=== PATIENT | female | born 1945 | race Caucasian/White ===

== ENCOUNTER → 2016-12-26 | Outpatient (CLI) | payer MEDICARE, BC ==
[~2016-12-26] MED LIST: BENICAR HCT 12.1 TAB PO; CEPHALEXIN500 M1 PO; EFFEXOR-XR150 MG PO; NORCO 325 MG-7.1 TAB PO; PREMPRO 0.3 MG-1 TAB PO; SUDAFED30 MG PO; SYNTHROID 0.0.025 MG PO
[2016-12-26 17:22] LABS: HIV 1/2 Antibodies Non-Reactive; HIV-1p24 Antigen Non-Reactive
== END ==
LOC: COL.LAB 15:58
PROVIDERS: Orthopaedic Surgery
DX: Z01.812 Encounter for preprocedural laboratory examination (principal); M17.11 Unilateral primary osteoarthritis, right knee

== ENCOUNTER 2017-05-13 17:55 | Emergency (ER) | payer MEDICARE, BC ==
[~2017-05-13] VITALS: Ht 162.6 cm; Wt 90.9 kg
[2017-05-13 17:58] VITALS: TEMP 98.8
[2017-05-13] MEDS ORDERED: ADVIL200 MG PO (19:06)
[2017-05-13] MEDS ORDERED: NORCO 325 MG-51 TAB PO (19:38)
[2017-05-13 20:17] VITALS: BP 152/95; PULSE 80
== END 2017-05-13 20:21 | disposition home or self-care (01) ==
LOC: COL.ER 17:55
DX: S86.811A Strain of other muscle(s) and tendon(s) at lower leg level, right leg, initial encounter (principal); S00.81XA Abrasion of other part of head, initial encounter; I10 Essential (primary) hypertension; Z96.651 Presence of right artificial knee joint; W01.0XXA Fall on same level from slipping, tripping and stumbling without subsequent striking against object, initial encounter; Y92.488 Other paved roadways as the place of occurrence of the external cause

== ENCOUNTER → 2017-09-04 | Outpatient (CLI) | payer MEDICARE, BC ==
[~2017-09-04] MED LIST changes: +ADVIL200 MG PO; +NORCO 325 MG-51 TAB PO
[2017-09-04 12:15] LABS: HIV 1/2 Antibodies Non-Reactive; HIV-1p24 Antigen Non-Reactive
== END ==
LOC: COL.LAB 11:11
PROVIDERS: Orthopaedic Surgery
DX: Z01.812 Encounter for preprocedural laboratory examination (principal); M17.12 Unilateral primary osteoarthritis, left knee

== ENCOUNTER → 2018-12-08 | Outpatient (CLI) | payer MEDICARE, BC | LOC: MC.RAD 07:30 | DX: Z12.31 Encounter for screening mammogram for malignant neoplasm of breast (principal) ==

== ENCOUNTER → 2019-12-10 | Outpatient (CLI) | payer MEDICARE, BC | LOC: MC.RAD 10:15 | DX: Z12.31 Encounter for screening mammogram for malignant neoplasm of breast (principal); N64.89 Other specified disorders of breast ==

== ENCOUNTER → 2019-12-17 | Outpatient (CLI) | payer MEDICARE, BC | LOC: MC.RAD 09:53 | DX: N64.89 Other specified disorders of breast (principal) ==

== ENCOUNTER 2020-04-19 02:10 | Emergency (ER) | payer MEDICARE, BC ==
[~2020-04-19] VITALS: Ht 162.7 cm; Wt 104.5 kg
--- NOTE | 2020-04-19 10:30 | NUR ---
Pt [place] [facility] [place] [facility] [place] from [place]. Pt awake and alert. Denies pain or nausea. Pt transfers self to bed. Assesment complete and RXM reviewed. Call light within reach. INT to LT AC without redness or drainage. Side rails up x2.
[2020-04-19 11:00] VITALS: BP 131/67; PULSE 77; TEMP 97.8
[2020-04-19 15:10] VITALS: BP 118/88; PULSE 79; TEMP 97.7
--- NOTE | 2020-04-19 15:10 | NUR ---
Pt to [facility] [place] [facility] via cart from PACU. Pt drowsy, but awake. Pt denies pain or nausea. O2 on at 2 liters via nasal canula. Encouraged pt to deep breath and cough. Education on splinting abdomen provided. in room. Apple sauce and water given per pt request. Bandaids x2 and Gauze dressing x1 to abdomen are all clean, dry and intact. Side rails up x2. Will continue to monitor. Call light within reach.
[2020-04-19 15:25] VITALS: BP 112/85; PULSE 78
--- NOTE | 2020-04-19 15:25 | NUR ---
Pt continues to rest. Visiting with her . Denies pain or nausea. Tolerating po food and fluids without difficulties. O2 decreased to 1 liter via nasal canula. Call light within reach.
[2020-04-19 15:40] VITALS: BP 129/69; PULSE 74
--- NOTE | 2020-04-19 15:40 | NUR ---
Pt resting. Denies needs. Call light within reach.
[2020-04-19 15:55] VITALS: BP 118/72; PULSE 74
--- NOTE | 2020-04-19 15:55 | NUR ---
O2 discontinued. Pt encouraged to deep breath and cough. O2 stats sitting 88-90% on room air. Will provide IS and instructions on use to help pt with deep breathing.
[2020-04-19 16:10] VITALS: BP 110/53; PULSE 73
--- NOTE | 2020-04-19 16:10 | NUR ---
IS given and instructed on use. Pt shows correct return demonstration. O2 sat is 91% on room air before IS use. Pt up to restroom with stand by assist. Pt incontent of urine, and also voided large amounts without difficulties. Pt back to room.
--- NOTE | 2020-04-19 16:15 | NUR ---
Discharge instructions reviewed. Pt voices understanding. IV site discontinued with all parts intact. Pt up to dress with assistance from . Call light within reach.
--- NOTE | 2020-04-19 16:40 | NUR ---
Pt escorted to private car via wheel chair. Pt accompanied home by her .
[2020-04-20 10:55] LABS: COLLECTION METHOD CLEAN CATCH
[2020-04-20 13:06] LABS: RED BLOOD COUNT 4.65 M/mm3 (4.10-5.30)
[2020-04-20 13:07] LABS: HEMATOCRIT 40.3 % (37.0-47.0); HEMOGLOBIN 13.3 g/dl (12.5-16.0); MEAN CELL VOLUME 87 fl (80.0-100.0); MEAN CORPUSCULAR HEMOGLOBIN 29 pg (27.0-31.0); MEAN CORPUSCULAR HGB CONC 33 g/dl (33.0-37.0); PLATELET COUNT 329 K/mm3 (130-400); REDCELL DISTRIBUTION WIDTH-CV 14.1 % (11.5-14.5)
[2020-04-20 13:08] LABS: BASO # 0.1 (0.0-0.2); BASO % 0.4 % (0.0-2.0); EOS # 0.3 (0.0-0.7); EOS % 1.8 % (0-4.0); GRAN # 14.8 (1.4-6.5); GRAN % 82.1 % (42.2-75.2); LYMPH # 1.8 (1.2-3.4); LYMPH % 10.2 % (20.0-51.0); MEAN PLATELET VOLUME 9.8 fl (7.4-10.4); MONO # 0.9 (0.1-0.6); MONO % 4.9 % (1.7-9.3)
[2020-04-20 13:09] LABS: ANION GAP 8 mmol/L (7-16); BLOOD UREA NITROGEN 32 mg/dL (7-17); CARBON DIOXIDE 28 mmol/L (22-30); CHLORIDE 101 mmol/L (98-107); GLUCOSE 168 mg/dL (74-106); POTASSIUM 3.8 mmol/L (3.4-5.0); SODIUM 137 mmol/L (137-145)
[2020-04-20 13:10] LABS: ALANINE AMINOTRANSFERASE 21 U/L (4-34); ALBUMIN 4.1 gm/dL (3.5-5.0); ALKALINE PHOSPHATASE 76 U/L (50-136); AST,SGOT 32 U/L (15-37); BILIRUBIN,TOTAL 0.6 mg/dL (0.0-1.0); CALCIUM 9.4 mg/dL (8.4-10.2); LIPASE 39 U/L (23-300); TOTAL PROTEIN 7.4 gm/dL (6.4-8.2); TROPONIN-I < 0.012 ng/mL (0.000-0.035)
[2020-04-20 13:11] LABS: C-REACTIVE PROTEIN 5.6 mg/dL (0.0-0.9)
[2020-04-20 13:12] LABS: PH 5 (5-8); URINE APPEARANCE Cloudy; URINE COLOR Amber
[2020-04-20 13:13] LABS: URINE BILIRUBIN Negative (NEGATIVE); URINE BLOOD Negative (NEGATIVE); URINE GLUCOSE Negative (NEGATIVE); URINE KETONE Negative (NEGATIVE); URINE NITRATE Negative (NEGATIVE); URINE PROTEIN(semi-quant) 2+ (NEGATIVE); URINE UROBILINOGEN Negative (NEGATIVE)
[2020-04-20 13:14] LABS: MUCOUS Present /lpf; SQUAMOUS EPITHELIAL 0-2 /hpf; URINE BACTERIA None Seen /hpf; URINE CALCIUM OXALATE CRYSTAL Present /hpf; URINE LEUKOCYTE ESTERASE Negative (NEGATIVE)
[2020-04-21 08:40] VITALS: BP 120/80; PULSE 79; TEMP 98.5
== END 2020-04-19 10:35 | disposition other institution (70) ==
LOC: COL.ER 02:10
PROVIDERS: Emergency Medicine
DX: K81.0 Acute cholecystitis (principal); I10 Essential (primary) hypertension; E03.9 Hypothyroidism, unspecified; F32.9 Major depressive disorder, single episode, unspecified; Z88.2 Allergy status to sulfonamides; Z79.890 Hormone replacement therapy
CPT/HCPCS: J0330; J0690; J1100; J1885; J2250; J2270; J2405; J2543; J2704; J2710; J3010; J7030; J7120; Q9967

== ENCOUNTER → 2021-03-07 | Outpatient (CLI) | payer MEDICARE, BC | LOC: MC.RAD 10:54 | DX: Z12.31 Encounter for screening mammogram for malignant neoplasm of breast (principal) ==

== ENCOUNTER → 2021-05-31 | Outpatient (CLI) | payer MEDICARE, BC | LOC: COL.RAD 07:42 | DX: G45.9 Transient cerebral ischemic attack, unspecified (principal) | CPT/HCPCS: A9575 ==

== ENCOUNTER 2022-04-11 16:15 | Emergency (ER) | payer OTHER, MEDICARE, BC ==
[~2022-04-11] VITALS: Ht 162.6 cm; Wt 93.6 kg
[2022-04-11 16:21] VITALS: TEMP 98.4
[2022-04-11 16:58] LABS: BASO # 0.1 K/mm3 (0.0-0.2); BASO % 0.5 % (0.0-2.0); EOS # 0.3 K/mm3 (0.0-0.7); EOS % 3.1 % (0.0-4.0); GRAN # 7.5 K/mm3 (1.4-6.5); GRAN % 72.2 % (42.2-75.2); HEMOGLOBIN 13.7 g/dl (12.5-16.0); LYMPH # 1.9 K/mm3 (1.2-3.4); LYMPH % 18.3 % (20.0-51.0); MEAN CELL VOLUME 85 fl (80.0-100.0); MEAN CORPUSCULAR HEMOGLOBIN 28 pg (27-31); MEAN CORPUSCULAR HGB CONC 33 g/dl (33.0-37.0); MEAN PLATELET VOLUME 9.9 fl (7.4-10.4); MONO # 0.6 K/mm3 (0.1-0.6); MONO % 5.5 % (1.7-9.3); PLATELET COUNT 302 K/mm3 (130-400); RED BLOOD COUNT 4.94 M/mm3 (4.10-5.30); REDCELL DISTRIBUTION WIDTH-CV 14.5 % (11.5-14.5)
[2022-04-11 17:13] LABS: ALBUMIN 3.7 gm/dL (3.4-4.8); BILIRUBIN,TOTAL 0.4 mg/dL (0.2-1.2); CALCIUM 9.3 mg/dL (8.4-10.2); CREATININE, serum 0.82 mg/dL (0.57-1.11); POTASSIUM 3.6 mmol/L (3.5-4.5); TOTAL PROTEIN 7.1 gm/dL (6.2-8.1)
[2022-04-11] MEDS ORDERED: NORCO 325 MG-51 TAB PO (17:41)
[2022-04-11 18:19] VITALS: BP 199/107; PULSE 79
== END 2022-04-11 18:23 | disposition home or self-care (01) ==
LOC: COL.ER 16:15
PROVIDERS: Personal Emergency Response Attendant
DX: S80.01XA Contusion of right knee, initial encounter (principal); S09.90XA Unspecified injury of head, initial encounter; R41.2 Retrograde amnesia; Z28.310 Unvaccinated for COVID-19; V49.9XXA Car occupant (driver) (passenger) injured in unspecified traffic accident, initial encounter; Y92.410 Unspecified street and highway as the place of occurrence of the external cause

== ENCOUNTER → 2022-05-22 | Outpatient (CLI) | payer MEDICARE, BC | LOC: MC.RAD 10:45 | DX: Z12.31 Encounter for screening mammogram for malignant neoplasm of breast (principal) ==